=== PATIENT | male | born 1965 | race Caucasian/White ===

== ENCOUNTER 2016-05-14 10:45 | Inpatient (IN) | payer OTHER ==
[2016-05-14] MEDS ORDERED: POTASSIUM CHLO10 MEQ PO (12:50)
[2016-05-14] MEDS ORDERED: ZESTRIL2.5 MG PO (12:51)
[2016-05-14] MEDS ORDERED: ASPIR 8181 MG PO (12:52)
[2016-05-14] MEDS ORDERED: VYTORIN 10-401 EACH PO (12:52)
[2016-05-14] MEDS ORDERED: RANEXA500 MG PO (12:53)
[2016-05-14] MEDS ORDERED: FUROSEMIDE20 MG PO (12:54)
[2016-05-14] MEDS ORDERED: JANUMET 50-1,01 EACH PO (12:54)
[2016-05-14] MEDS ORDERED: DIGITEK125 MCG PO (12:55)
[2016-05-14] MEDS ORDERED: ACTOS45 MG PO (12:56)
[2016-05-14] MEDS ORDERED: LEVEMIR100 UNIT/1 SQ (13:00)
[2016-05-14 13:09] LABS: HEMOGLOBIN 12.4 gm/dl (14.0-17.5); RED BLOOD COUNT 4.11 M/UL (4.20-5.50); WHITE BLOOD COUNT 10.7 K/UL (4.5-11.0)
[2016-05-14 13:27] LABS: BUN/CREATININE RATIO 19 (0-10)
[2016-05-14 17:36] LABS: BUN/CREATININE RATIO 14 (0-10)
[2016-05-14 21:31] LABS: BUN/CREATININE RATIO 13 (0-10)
[2016-05-15 01:34] LABS: BUN/CREATININE RATIO 14 (0-10)
[2016-05-15 04:56] LABS: HEMOGLOBIN 11.7 gm/dl (14.0-17.5); RED BLOOD COUNT 3.86 M/UL (4.20-5.50)
[2016-05-15 05:16] LABS: BUN/CREATININE RATIO 12 (0-10)
[2016-05-15 09:31] LABS: BUN/CREATININE RATIO 10 (0-10)
[2016-05-15 13:27] LABS: BUN/CREATININE RATIO 8 (0-10)
[2016-05-15 19:53] LABS: BUN/CREATININE RATIO 8 (0-10)
[2016-05-15 23:46] LABS: BUN/CREATININE RATIO 8 (0-10)
[2016-05-16 03:52] LABS: HEMOGLOBIN 12.2 gm/dl (14.0-17.5); RED BLOOD COUNT 4.1 M/UL (4.20-5.50); WHITE BLOOD COUNT 8.6 K/UL (4.5-11.0)
[2016-05-16 04:08] LABS: BUN/CREATININE RATIO 8 (0-10)
[2016-05-16 07:59] LABS: BUN/CREATININE RATIO 6 (0-10)
[2016-05-16 11:52] LABS: BUN/CREATININE RATIO 6 (0-10)
[2016-05-17 04:49] LABS: BUN/CREATININE RATIO 16 (0-10)
[2016-05-17] MEDS ORDERED: LOPRESSOR 25 MG25 MG PO (13:54)
[2016-05-17] MEDS ORDERED: JANUVIA50 MG PO (13:55)
[2016-05-17] MEDS ORDERED: NOVOLOG 10100 UNITS/ SQ (13:56)
== END 2016-05-17 14:37 | disposition home or self-care (01) | DRG 638 ==
LOC: PROG CARE 10:45 → MED SURG 4 05-17 02:40
PROVIDERS: Internal Medicine; Internal Medicine Infectious Disease; ADMIT Internal Medicine
DX: E13.10 Other specified diabetes mellitus with ketoacidosis without coma (principal); N17.9 Acute kidney failure, unspecified; E46 Unspecified protein-calorie malnutrition; Z68.1 Body mass index [BMI] 19.9 or less, adult; Z91.14 Patient's other noncompliance with medication regimen; Z91.19 Patient's noncompliance with other medical treatment and regimen; I25.10 Atherosclerotic heart disease of native coronary artery without angina pectoris; Z95.1 Presence of aortocoronary bypass graft; F17.291 Nicotine dependence, other tobacco product, in remission; E78.5 Hyperlipidemia, unspecified; E87.6 Hypokalemia; R11.2 Nausea with vomiting, unspecified; R10.9 Unspecified abdominal pain; R51 Headache; I11.9 Hypertensive heart disease without heart failure; I50.9 Heart failure, unspecified; J44.9 Chronic obstructive pulmonary disease, unspecified; Z85.820 Personal history of malignant melanoma of skin; Z79.82 Long term (current) use of aspirin; Z79.899 Other long term (current) drug therapy; Z79.4 Long term (current) use of insulin
CPT/HCPCS: 36415; 71020; 80048; 80053; 80061; 82962; 83036; 85027; J0456; J0696; J1650; J1815; J7030; J7050; Q2039